=== PATIENT | male | born 1975 | race Caucasian/White ===

== ENCOUNTER → 2025-01-07 08:51 | Outpatient (REF) | payer OTHER, SELFPAY | LOC: HWRAD 08:51 | PROVIDERS: ATTENDING PHYSICIAN Internal Medicine | DX: E78.2 Mixed hyperlipidemia (principal); E55.9 Vitamin D deficiency, unspecified; E01.0 Iodine-deficiency related diffuse (endemic) goiter; R63.5 Abnormal weight gain | CPT/HCPCS: 76536 ==